=== PATIENT | female | born 1970 | race Caucasian/White ===

== ENCOUNTER 2017-06-20 07:02 | Emergency (ER) | payer SELFPAY ==
[~2017-06-20] VITALS: Ht 157.5 cm; Wt 50.0 kg
[2017-06-20 07:15] VITALS: BP 108/58; PULSE 98; RESP 16; TEMP 98; O2SAT 98
[2017-06-20] MEDS ORDERED: SODIUM CHLORIDE 0.9% FLUSH 10 ML FLUSH IVF PRN (07:30)
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
[2017-06-20 07:43] VITALS: RESP 16; O2SAT 98
[2017-06-20] MEDS ORDERED: LORazepam 2 MG/ML VIAL IM ONE (08:00)
[2017-06-20 08:06] LABS: AUTOMATED NEUTROPHIL # 9.7 TH/MM3 (1.8-7.7); BASOPHIL # 0.1 TH/MM3 (0-0.2); BASOPHIL % 0.4 % (0.0-2.0); EOSINOPHIL # 0.1 TH/MM3 (0-0.4); EOSINOPHIL % 0.8 % (0.0-4.0); HEMATOCRIT 42.4 % (35.0-46.0); HEMOGLOBIN 14.3 GM/DL (11.6-15.3); LYMPH % 14.5 % (9.0-44.0); LYMPHOCYTE # 1.8 TH/MM3 (1.0-4.8); MEAN CELL VOLUME 92.2 FL (80.0-100.0); MEAN CORPUSCULAR HEMOGLOBIN 31.2 PG (27.0-34.0); MEAN CORPUSCULAR HGB CONC 33.8 % (32.0-36.0); MEAN PLATELET VOLUME 7.1 FL (7.0-11.0); MONO % 7.2 % (0.0-8.0); MONOCYTE # 0.9 TH/MM3 (0-0.9); NEUT % 77.1 % (16.0-70.0); PLATELET COUNT 300 TH/MM3 (150-450); RED BLOOD COUNT 4.59 MIL/MM3 (4.00-5.30); RED CELL DISTRIBUTION WIDTH 12.8 % (11.6-17.2); WHITE BLOOD COUNT 12.6 TH/MM3 (4.0-11.0)
[2017-06-20 08:22] LABS: ALT (GPT) 21 U/L (10-53)
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
[2017-06-20 08:27] LABS: ALKALINE PHOSPHATASE 84 U/L (45-117); TOTAL BILIRUBIN ADULT 0.3 MG/DL (0.2-1.0); TOTAL PROTEIN 7.3 GM/DL (6.4-8.2)
[2017-06-20 08:33] LABS: AST (GOT) 22 U/L (15-37); BICARBONATE 28.6 MEQ/L (21.0-32.0); BLOOD UREA NITROGEN 8 MG/DL (7-18); CALCIUM 9.1 MG/DL (8.5-10.1); CHLORIDE 108 MEQ/L (98-107); CREATININE 0.88 MG/DL (0.50-1.00); GLOMERULAR FILTRATION RATE 68 ML/MIN (>89); GLUCOSE,RANDOM 101 MG/DL (74-106); SODIUM (NA) 142 MEQ/L (136-145)
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
[2017-06-20] MEDS ORDERED: IOHEXOL 350 MG/ML 10 ML VIAL (for RAD DIAG) IVCONTRAST ONE (09:30)
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
[2017-06-20] MEDS ORDERED: SODIUM CHLOR 0.9% 1000 ML INJ 1,000 ML IV ONE (10:45)
[2017-06-20 12:44] LABS: BACTERIA, URINE OCC /hpf; BILIRUBIN, URINE NEG (NEG); BLOOD, URINE SMALL (NEG); GLUCOSE,URINE NEG (NEG); KETONE, URINE NEG (NEG); NITRITE,URINE NEG (NEG); PH, URINE 5.5 (5.0-8.5); SQUAMOUS EPITHELIAL CELL URINE <1 /hpf (0-5); URINE COLOR YELLOW (YELLW/STRAW); URINE LEUKOCYTE ESTERASE NEG (NEG)
[2017-06-20 17:07] VITALS: BP 120/72; PULSE 81; RESP 18; TEMP 98.4; O2SAT 96
[2017-06-20 22:45] VITALS: BP 145/67; PULSE 73; RESP 18; TEMP 98.3; O2SAT 97
[2017-06-21 06:50] VITALS: BP 133/72; PULSE 71; RESP 18; TEMP 99.1; O2SAT 97
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
== END 2017-06-21 10:38 | disposition home or self-care (01) ==
LOC: NEPC 07:02 → NEPJ 06-21 10:38
DX: F10.129 Alcohol abuse with intoxication, unspecified (principal); S40.022A Contusion of left upper arm, initial encounter; F14.90 Cocaine use, unspecified, uncomplicated; S61.412A Laceration without foreign body of left hand, initial encounter; S30.810A Abrasion of lower back and pelvis, initial encounter; N20.0 Calculus of kidney; Z78.1 Physical restraint status; Z72.0 Tobacco use; X58.XXXA Exposure to other specified factors, initial encounter
CPT/HCPCS: 70450; 71045; 73060; 73130; 74177; 80053; 80307; 81001; 84702; 84703; 85025; 86850; 86900; 86901; 96360; 96372; 99285; J2060; J7030; Q9967